=== PATIENT | male | born 1960 | race Two or more races ===

== ENCOUNTER 2024-09-11 17:20 | Emergency (ER) | payer OTHER ==
[~2024-09-11] VITALS: Ht 175.3 cm; Wt 85.7 kg
[2024-09-11 17:50] VITALS: BP 145/93; O2SAT 95
[2024-09-11] MEDS ORDERED: ACETAMINOPHEN 500 MG GEL..CAP PO ONE ×2 (18:30)
[2024-09-11 18:42] LABS: HEMATOCRIT 45.8 % (39.0-48.0); HEMOGLOBIN 15.6 g/dL (13-16.00); MEAN CELL VOLUME 89.8 fL (80.0-100.00); MEAN CORPUSCULAR HEMOGLOBIN 30.6 pg (27.00-32.0); PLATELET COUNT 317 K/uL (150-450); RED BLOOD COUNT 5.09 M/uL (4.00-6.00); RED CELL DISTRIBUTION WIDTH 13.4 % (11.5-14.5)
[2024-09-11 19:33] LABS: PH,URINE 5.5 (5.0-8.0); URINE APPEARANCE Clear; URINE BILIRRUBIN Negative (NEGATIVE); URINE BLOOD Negative; URINE COLOR Yellow; URINE GLUCOSE Negative (NEGATIVE); URINE KETONE Negative (NEGATIVE); URINE LEUKOCYTE Negative; URINE NITRATE Negative; URINE PROTEIN Negative (NEGATIVE); URINE UROBILINOGEN 0.2 E.U./dl
[2024-09-11 19:37] LABS: URINE BACTERIA 6.1 uL (0.0-1933); URINE RBC 2.3 uL (0.0-20.8)
[2024-09-11 20:00] LABS: ALBUMIN 3.6 gm/dL (3.4-5.0); BILIRUBIN TOTAL 0.56 mg/dL (0.3-1.2); CALCIUM 9.5 mg/dL (8.5-10.1); CREATININE SERUM 1.26 mg/dL (0.70-1.30); GFR 57.44; GLOBULINA 4.4 G/DL (2.4-3.5); POTASSIUM 4.22 mEq/L (3.5-5.1)
[2024-09-11 21:03] LABS: URINE EPITHELIAL CELLS 0.6 uL (0.0-38.8); URINE WBC 0.9 uL (0.0-23.2)
== END 2024-09-11 21:18 | disposition home or self-care (01) ==
LOC: ER 17:22
PROVIDERS: General Practice
DX: R53.81 Other malaise (principal)